=== PATIENT | female | born 1935 | race Caucasian/White ===

== ENCOUNTER 2022-11-10 16:40 | Inpatient (IN) | payer MEDICARE ==
[~2022-11-10] VITALS: Ht 157.5 cm; Wt 63.5 kg
[2022-11-10 17:12] LABS: HEMATOCRIT 40.7 % (31.2-41.9); MEAN CORPUSCULAR HEMOGLOBIN 28.8 uug (24.7-32.8); MEAN CORPUSCULAR VOLUME 87.7 fL (75.5-95.3); PLATELET COUNT (AUTO) 238 K/uL (179-408)
[2022-11-10] MEDS ORDERED: ADALAT (17:24)
[2022-11-10] MEDS ORDERED: BACTRIM (17:24)
[2022-11-10] MEDS ORDERED: FURO20TA90 (17:24)
[2022-11-10] MEDS ORDERED: ELIQUIS (17:24)
[2022-11-10] MEDS ORDERED: GABAPENTIN (17:24)
[2022-11-10] MEDS ORDERED: LISINOPRIL (17:24)
[2022-11-10 17:29] LABS: BILIRUBIN,TOTAL 0.5 mg/dL (0.2-1.0); CREATININE 0.7 mg/dL (0.6-1.3); MAGNESIUM 1.7 mg/dL (1.8-2.4); PHOSPHOROUS 2.9 mg/dL (2.5-4.9); POTASSIUM 3.8 mmol/L (3.5-5.1); TOTAL PROTEIN, SERUM 6.8 g/dL (6.4-8.2)
[2022-11-10 17:47] LABS: *BILIRUBIN,URIN NEGATIVE (NEGATIVE); *BLOOD, URINE NEGATIVE (NEGATIVE); *CLARITY,URINE CLEAR (CLEAR); *COLOR,URINE YELLOW (YELLOW); *KETONES,URINE NEGATIVE (NEGATIVE); *UROBILINOGEN,URINE 0.2 E.U./dl (NORMAL); LEUKOCYTE ESTERASE ,URINE NEGATIVE (NEGATIVE); NITRITE, URINE NEGATIVE (NEGATIVE); PH,URINE 5.5 (5.0-8.0); UGLUCOSE NEGATIVE (NEGATIVE)
--- NOTE | 2022-11-10 19:10 | NUR ---
Recieved report from Destiny WYNN
[2022-11-10] MEDS ORDERED: METRONIDAZOLE 500 MG/NS 100 ML PIGGYBACK IV ONE (19:30)
[2022-11-10] MEDS ORDERED: CEFTRIAXONE 1 G in IV DEXTROSE 5% 50 ML IV ONE (19:30)
[2022-11-10] MEDS ORDERED: CEFTRIAXONE /D5W 50ML IVPB **ER PYXIS IV ONE (19:30)
[2022-11-10] MEDS ORDERED: METRONIDAZOLE 500 MG/NS 100ML 100 ML IV ONE (19:30)
--- NOTE | 2022-11-10 22:00 | NUR ---
Called [facility] for panel call, Florin Dickerson carton liner.
--- NOTE | 2022-11-10 23:42 | NUR ---
Called third floor and gave report to Manuel WYNN.
[2022-11-10] MEDS ORDERED: MAGNESIUM OXIDE 400 MG TABLET PO ONE (23:45)
--- NOTE | 2022-11-10 23:55 | NUR ---
Transferred patient upstairs to third floor via gurney with belongings.
[2022-11-11] MEDS ORDERED: REMEDY ESSENTIAL ZINC PASTE 113 GM TP PRN
[2022-11-11] MEDS ORDERED: ONDANSETRON 4 MG/2 ML VIAL IV PRN
[2022-11-11] MEDS ORDERED: ACETAMINOPHEN 325 MG TABLET PO PRN
[2022-11-11] MEDS ORDERED: MORPHINE SULFATE 2 MG/1 ML DISP.SYRIN IV PRN
--- NOTE | 2022-11-11 | NUR ---
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 Patient stated she has multiple falls and she always land on her right knee. Patient complain of left shoulder/arm pain and right flank pain. orient to her room, cont to monitor.
[2022-11-11 00:39] VITALS: BP 163/76; TEMP 97.3; O2SAT 93
[2022-11-11] MEDS ORDERED: METRONIDAZOLE 250 MG TABLET ONE ×2 (00:59)
[2022-11-11] MEDS: METRONIDAZOLE 250 MG TABLET PO SCH ×4 (01:09→18:36)
[2022-11-11 04:00] VITALS: BP 140/64; TEMP 97.5; O2SAT 96
--- NOTE | 2022-11-11 05:20 | NUR ---
Patient awake no complain of pain on flank area, but pain on left shoulder, offer pain meds but she refused, rendered good preston care, cont on abx with no adverse reaction. cont t monitor.
[2022-11-11] MEDS: PANTOPRAZOLE SODIUM 40 MG TABLET.DR PO SCH (06:16)
[2022-11-11 07:11] LABS: HEMATOCRIT 38.6 % (31.2-41.9); MEAN CORPUSCULAR HEMOGLOBIN 29.2 uug (24.7-32.8); MEAN CORPUSCULAR VOLUME 86.7 fL (75.5-95.3); PLATELET COUNT (AUTO) 212 K/uL (179-408)
[2022-11-11 07:36] LABS: CARBON DIOXIDE 26 mmol/L (21-32); CHLORIDE 104 mmol/L (98-107); CHOLESTEROL 133 mg/dL (<200); CREATININE 0.7 mg/dL (0.6-1.3); HDL CHOLESTEROL 58 mg/dL (40-60); MAGNESIUM 1.7 mg/dL (1.8-2.4); PHOSPHOROUS 2.9 mg/dL (2.5-4.9); POTASSIUM 3.6 mmol/L (3.5-5.1); TRIGLYCERIDES 41 MG/DL (30-150); UREA NITROGEN, BLOOD 11 mg/dL (7-18)
[2022-11-11 07:58] LABS: THYROID STIMULATING HORMONE 1.196 mIU/mL (0.358-3.740)
[2022-11-11] MEDS ORDERED: MAGNESIUM OXIDE 400 MG TABLET PO ONE (10:00)
[2022-11-11] MEDS: FUROSEMIDE 20 MG TABLET PO SCH (10:47)
[2022-11-11] MEDS: APIXABAN 2.5 MG TABLET PO SCH ×2 (10:49→20:27)
[2022-11-11] MEDS: GABAPENTIN 100 MG CAPSULE PO SCH ×3 (10:49→18:36)
[2022-11-11] MEDS: LISINOPRIL 5 MG TABLET PO SCH (10:51)
[2022-11-11 11:27] VITALS: BP 169/72; TEMP 97.7; O2SAT 96
[2022-11-11] MEDS ORDERED: FERR-56 PO (12:41)
[2022-11-11] MEDS ORDERED: GABA-532 PO (12:41)
[2022-11-11] MEDS ORDERED: FURO-152 PO (12:41)
[2022-11-11] MEDS ORDERED: APIX5TAB PO (12:41)
[2022-11-11] MEDS ORDERED: LISI20TA30 PO (12:44)
[2022-11-11] MEDS ORDERED: CHOL100062 PO (12:50)
[2022-11-11] MEDS ORDERED: OLOP5DRO15 OP (12:50)
[2022-11-11] MEDS ORDERED: FLUT16SP16 BNOSTRILS (12:50)
[2022-11-11] MEDS ORDERED: NIFE60TA73 PO (12:50)
[2022-11-11] MEDS ORDERED: IBUP-1953 PO (12:50)
[2022-11-11] MEDS ORDERED: MAGN400T26 PO (12:51)
[2022-11-11] MEDS ORDERED: CEFTRIAXONE 1 G in IV DEXTROSE 5% 50 ML IV SCH (15:15)
[2022-11-11 16:36] VITALS: BP 118/67; TEMP 97.7; O2SAT 95
[2022-11-11] MEDS: MAGNESIUM OXIDE 400 MG TABLET PO SCH (18:35)
[2022-11-11] MEDS: OLOPATADINE 0.1% OPHT DROP 5 ML BOTTLE EACHEYE SCH (18:35)
[2022-11-11] MEDS: CEFTRIAXONE 1 G in IV DEXTROSE 5% 50 ML IV SCH (20:22)
[2022-11-11] MEDS: METRONIDAZOLE 500 MG/NS 100ML 500 MG in PREMIXED 1 EACH IV SCH (21:10)
--- NOTE | 2022-11-12 00:12 | NUR ---
Flagyl 250 mg po not given, Flagyl 500 mg IVPB given @2200
--- NOTE | 2022-11-12 04:11 | NUR ---
AAOx4 Admitted for abdominal pain. All needs attended. VSS. Kept comfortable. On IV ABT given as scheduled. No acute distress noted.Will monitor patient.Fall precautions maintained. Incontinent of bowel and bladder. No BM noted this shift.
[2022-11-12] MEDS: METRONIDAZOLE 500 MG/NS 100ML 500 MG in PREMIXED 1 EACH IV SCH (05:11)
[2022-11-12] MEDS: METRONIDAZOLE 250 MG TABLET PO SCH ×5 (05:16→23:12)
[2022-11-12] MEDS: PANTOPRAZOLE SODIUM 40 MG TABLET.DR PO SCH (06:09)
[2022-11-12 07:00] LABS: HEMATOCRIT 39.3 % (31.2-41.9); MEAN CORPUSCULAR HEMOGLOBIN 29.5 uug (24.7-32.8); PLATELET COUNT (AUTO) 209 K/uL (179-408)
[2022-11-12 07:19] LABS: CARBON DIOXIDE 27 mmol/L (21-32); CHLORIDE 104 mmol/L (98-107); CREATININE 0.8 mg/dL (0.6-1.3); POTASSIUM 3.6 mmol/L (3.5-5.1); UREA NITROGEN, BLOOD 12 mg/dL (7-18)
[2022-11-12] MEDS ORDERED: IBUPROFEN 400 MG TABLET PO PRN (08:30)
[2022-11-12] MEDS: OLOPATADINE 0.1% OPHT DROP 5 ML BOTTLE EACHEYE SCH ×2 (09:33→17:51)
[2022-11-12] MEDS: FLUTICASONE PROP NASAL SPRAY 16 GM BOTTLE NS SCH (09:34)
[2022-11-12] MEDS: DOCUSATE SODIUM 100 MG/10 ML LIQUID UDC PO SCH (09:34)
[2022-11-12] MEDS: FERROUS SULFATE 325 MG TABEC PO SCH (09:34)
[2022-11-12] MEDS: GABAPENTIN 100 MG CAPSULE PO SCH ×2 (09:34→09:35)
[2022-11-12] MEDS: CHOLECALCIFEROL 1,000 UNIT TABLET PO SCH (09:35)
[2022-11-12] MEDS: MAGNESIUM OXIDE 400 MG TABLET PO SCH ×2 (09:35→17:51)
[2022-11-12] MEDS: FUROSEMIDE 20 MG TABLET PO SCH (09:36)
[2022-11-12] MEDS: NIFEdipine XL 60 MG TABSR PO SCH (09:43)
[2022-11-12] MEDS: APIXABAN 2.5 MG TABLET PO SCH ×2 (09:43→21:16)
[2022-11-12] MEDS: LISINOPRIL 20 MG TABLET PO SCH (09:44)
[2022-11-12] MEDS: LISINOPRIL 5 MG TABLET PO SCH (09:44)
--- NOTE | 2022-11-12 10:00 | NUR ---
Duplicate 100mg PO order for Gabapentin: Asked pt how many Gabapentin pills she takes in the morning and she said "Just one". Called pharmacy and they will call doctor to verify. Holding second Gabapentin until further orders.
[2022-11-12 11:45] VITALS: BP 166/84; TEMP 98.8; O2SAT 97
[2022-11-12 15:45] VITALS: BP 129/57; TEMP 98; O2SAT 96
[2022-11-12 20:00] VITALS: BP 145/75; TEMP 98.2; O2SAT 94
[2022-11-12] MEDS: CEFTRIAXONE 1 G in IV DEXTROSE 5% 50 ML IV SCH (20:39)
[2022-11-13 04:00] VITALS: BP 140/71; TEMP 97.6; O2SAT 94
[2022-11-13] MEDS: METRONIDAZOLE 250 MG TABLET PO SCH ×4 (05:58→23:52)
[2022-11-13] MEDS: PANTOPRAZOLE SODIUM 40 MG TABLET.DR PO SCH (06:00)
[2022-11-13 06:26] LABS: HEMATOCRIT 40.3 % (31.2-41.9); MEAN CORPUSCULAR HEMOGLOBIN 29.2 uug (24.7-32.8); MEAN CORPUSCULAR VOLUME 87.2 fL (75.5-95.3); PLATELET COUNT (AUTO) 241 K/uL (179-408)
[2022-11-13 06:47] LABS: CARBON DIOXIDE 26 mmol/L (21-32); CHLORIDE 103 mmol/L (98-107); CREATININE 0.7 mg/dL (0.6-1.3); MAGNESIUM 1.9 mg/dL (1.8-2.4); PHOSPHOROUS 2.9 mg/dL (2.5-4.9); POTASSIUM 3.6 mmol/L (3.5-5.1); UREA NITROGEN, BLOOD 15 mg/dL (7-18)
--- NOTE | 2022-11-13 06:52 | NUR ---
PATIENT AWAKE IN BED. SLEPT AT INTERVALS THROUGHOUT THE NIGHT. VSS. ALL NEEDS ATTENDED. WILL CONTINUE TO MONITOR AND ASSESS.
--- NOTE | 2022-11-13 07:04 | NUR ---
PATIENTS IV NOTED TO RIGHT FA, INFILTRATED. REMOVED. WILL ENDORSE. Addendum: 11/13/22 at 0706 by TOBI MERCEDES LVN PATIENT REQUESTING FOR REINSERTION LATER, NO IVS DUE. GROVE WORKER NOTIFIED.
[2022-11-13] MEDS: DOCUSATE SODIUM 100 MG/10 ML LIQUID UDC PO SCH ×2 (08:58→09:00)
[2022-11-13] MEDS: FLUTICASONE PROP NASAL SPRAY 16 GM BOTTLE NS SCH (08:59)
[2022-11-13] MEDS: CHOLECALCIFEROL 1,000 UNIT TABLET PO SCH (08:59)
[2022-11-13] MEDS: LISINOPRIL 5 MG TABLET PO SCH (08:59)
[2022-11-13] MEDS: GABAPENTIN 100 MG CAPSULE PO SCH (09:00)
[2022-11-13] MEDS: APIXABAN 2.5 MG TABLET PO SCH ×2 (09:00→22:15)
[2022-11-13] MEDS: LISINOPRIL 20 MG TABLET PO SCH (09:00)
[2022-11-13] MEDS: FUROSEMIDE 20 MG TABLET PO SCH (09:01)
[2022-11-13] MEDS: MAGNESIUM OXIDE 400 MG TABLET PO SCH ×2 (09:01→18:00)
[2022-11-13] MEDS: NIFEdipine XL 60 MG TABSR PO SCH (09:01)
[2022-11-13] MEDS: FERROUS SULFATE 325 MG TABEC PO SCH (09:01)
[2022-11-13] MEDS: OLOPATADINE 0.1% OPHT DROP 5 ML BOTTLE EACHEYE SCH ×2 (09:01→18:00)
[2022-11-13 10:56] VITALS: BP 155/74; TEMP 97.8; O2SAT 95
[2022-11-13] MEDS ORDERED: SORBITOL 70% SOLUTION 30 ML UDC PO ONE (14:30)
[2022-11-13] MEDS ORDERED: LACTULOSE 20 G/30 ML LIQUID UDC PO ONE (14:30)
[2022-11-13 16:12] VITALS: BP 107/67; TEMP 97.6; O2SAT 94
--- NOTE | 2022-11-13 18:29 | NUR ---
Patient awake and alert, very pleasant. She denies pain. No BM yet. Saline lock reinserted. No other complains at this time.
[2022-11-13 20:00] VITALS: BP 138/82; TEMP 98.9; O2SAT 95
[2022-11-13] MEDS: CEFTRIAXONE 1 G in IV DEXTROSE 5% 50 ML IV SCH (22:14)
--- NOTE | 2022-11-14 00:59 | NUR ---
PT C/O HEADACHE GIVEN MOTRIN 400 MG ORDERED F PT GIVEN MEDICATION ORDERED NO ADVERSE REACTION NOTED. CALL LIGHT WITHIN REACH,NO S/S OF DISTRESS, NEEDS ATTENDED TO. WILL CONTINUE TO MONITOR FOR SAFETY.
[2022-11-14] MEDS: PANTOPRAZOLE SODIUM 40 MG TABLET.DR PO SCH (06:15)
[2022-11-14] MEDS: METRONIDAZOLE 250 MG TABLET PO SCH ×2 (06:15→12:22)
[2022-11-14 06:17] VITALS: BP 120/68; TEMP 98.2; O2SAT 99
--- NOTE | 2022-11-14 06:49 | NUR ---
PT SLEPT DURING NIGHT NO S/S OF DISTRESS FALLS AND SAFETY PRECAUTION MAINTAINED. WILL ENDORSE TO AM NURSE.
--- NOTE | 2022-11-14 07:45 | NUR ---
Patient received to care, awake, calm, reports some nausea and pain, but says it improved. No other distress, side rails are up, pt is able to state her needs.
[2022-11-14] MEDS: FERROUS SULFATE 325 MG TABEC PO SCH (09:37)
[2022-11-14] MEDS: GABAPENTIN 100 MG CAPSULE PO SCH (09:37)
[2022-11-14] MEDS: CHOLECALCIFEROL 1,000 UNIT TABLET PO SCH (09:37)
[2022-11-14] MEDS: DOCUSATE SODIUM 100 MG/10 ML LIQUID UDC PO SCH (09:38)
[2022-11-14] MEDS: APIXABAN 2.5 MG TABLET PO SCH (09:42)
[2022-11-14] MEDS: MAGNESIUM OXIDE 400 MG TABLET PO SCH (09:49)
[2022-11-14] MEDS: OLOPATADINE 0.1% OPHT DROP 5 ML BOTTLE EACHEYE SCH (09:49)
[2022-11-14] MEDS: FLUTICASONE PROP NASAL SPRAY 16 GM BOTTLE NS SCH (09:49)
[2022-11-14] MEDS: FUROSEMIDE 20 MG TABLET PO SCH (09:49)
[2022-11-14] MEDS: LISINOPRIL 5 MG TABLET PO SCH (10:02)
[2022-11-14] MEDS: LISINOPRIL 20 MG TABLET PO SCH (10:03)
[2022-11-14] MEDS: NIFEdipine XL 60 MG TABSR PO SCH (10:03)
[2022-11-14] MEDS ORDERED: CIPR500T5 PO (10:47)
[2022-11-14] MEDS ORDERED: METR500T PO (10:47)
[2022-11-14 11:00] VITALS: BP 158/78; TEMP 97.5; O2SAT 96
--- NOTE | 2022-11-14 15:25 | NUR ---
Pt is being discharged to ARU. Pt is aware and willing. Report given to ARU nurse.
== END 2022-11-14 15:32 | DRG 392 ==
LOC: ER 16:40 → MEDSURG3 23:39
PROVIDERS: ADMIT Nurse Practitioner Acute Care; ATTEND Nurse Practitioner Acute Care
DX: A09 Infectious gastroenteritis and colitis, unspecified (principal); E87.1 Hypo-osmolality and hyponatremia; K50.90 Crohn's disease, unspecified, without complications; M48.54XA Collapsed vertebra, not elsewhere classified, thoracic region, initial encounter for fracture; E83.42 Hypomagnesemia; I25.10 Atherosclerotic heart disease of native coronary artery without angina pectoris; I48.91 Unspecified atrial fibrillation; I10 Essential (primary) hypertension
CPT/HCPCS: 36415; 83605; 83735; 84100; 84443; 84484; 85025; 93005; A4663; G0378; J0696; J3490; J3535

== ENCOUNTER 2022-11-14 15:55 | Inpatient (IN) | payer MEDICARE ==
[~2022-11-14] VITALS: Ht 157.5 cm; Wt 63.5 kg
[~2022-11-14 15:55] MED LIST: APIX5TAB PO; CHOL100062 PO; CIPR500T5 PO; FERR-56 PO; FLUT16SP16 BNOSTRILS; FURO-152 PO; GABA-532 PO; IBUP-1953 PO; LISI20TA30 PO; MAGN400T26 PO; METR500T PO; NIFE60TA73 PO; OLOP5DRO15 OP
[2022-11-14 16:47] VITALS: BP 128/66; TEMP 97.7; O2SAT 94
[2022-11-14 20:00] VITALS: BP 119/71; TEMP 98.1; O2SAT 95
[2022-11-14] MEDS: REMEDY ESSENTIAL ZINC PASTE 113 GM TOP SCH (20:17)
[2022-11-14] MEDS: TRAMADOL HCL 50 MG TABLET PO PRN (23:08)
[2022-11-15 05:03] VITALS: BP 138/83; TEMP 97.6; O2SAT 95
[2022-11-15 07:51] VITALS: BP 150/77; TEMP 98.4; O2SAT 95
[2022-11-15] MEDS: REMEDY ESSENTIAL ZINC PASTE 113 GM TOP SCH ×2 (09:15→20:21)
[2022-11-15] MEDS ORDERED: CIPROFLOXACIN HCL PO SCH (10:30)
[2022-11-15] MEDS ORDERED: ONDANSETRON HCL 4 MG TABLET PO PRN (10:45)
[2022-11-15] MEDS: NIFEdipine XL 60 MG TABSR PO SCH (11:56)
[2022-11-15] MEDS: GABAPENTIN 100 MG CAPSULE PO SCH (11:56)
[2022-11-15] MEDS: METRONIDAZOLE 500 MG TABLET PO SCH ×2 (11:57→17:25)
[2022-11-15] MEDS: LISINOPRIL 20 MG TABLET PO SCH (11:57)
[2022-11-15] MEDS: CIPROFLOXACIN HCL 250 MG TABLET PO SCH ×2 (12:02→20:21)
[2022-11-15 15:17] VITALS: BP 123/72; TEMP 98.6; O2SAT 95
[2022-11-15] MEDS: APIXABAN 5 MG TABLET PO SCH (17:24)
[2022-11-15] MEDS: OLOPATADINE 0.1% OPHT DROP 5 ML BOTTLE OP SCH (17:25)
[2022-11-15] MEDS: MAGNESIUM OXIDE 400 MG TABLET PO SCH (17:25)
[2022-11-15] MEDS: FUROSEMIDE 20 MG TABLET PO SCH (17:25)
[2022-11-15 21:22] VITALS: BP 131/73; TEMP 98.4; O2SAT 95
[2022-11-16 04:15] VITALS: BP 117/57; TEMP 98; O2SAT 98
[2022-11-16 07:44] VITALS: BP 119/80; TEMP 98.2; O2SAT 94
[2022-11-16] MEDS: CHOLECALCIFEROL 1,000 UNIT TABLET PO SCH (08:21)
[2022-11-16] MEDS: OLOPATADINE 0.1% OPHT DROP 5 ML BOTTLE OP SCH ×2 (08:22→16:16)
[2022-11-16] MEDS: FUROSEMIDE 20 MG TABLET PO SCH ×2 (08:22→16:16)
[2022-11-16] MEDS: LISINOPRIL 20 MG TABLET PO SCH (08:22)
[2022-11-16] MEDS: APIXABAN 5 MG TABLET PO SCH ×2 (08:22→16:17)
[2022-11-16] MEDS: MAGNESIUM OXIDE 400 MG TABLET PO SCH ×2 (08:22→16:16)
[2022-11-16] MEDS: METRONIDAZOLE 500 MG TABLET PO SCH ×2 (08:22→16:16)
[2022-11-16] MEDS: GABAPENTIN 100 MG CAPSULE PO SCH (08:22)
[2022-11-16] MEDS: NIFEdipine XL 60 MG TABSR PO SCH (08:27)
[2022-11-16] MEDS: CIPROFLOXACIN HCL 250 MG TABLET PO SCH ×2 (08:36→20:22)
[2022-11-16] MEDS: REMEDY ESSENTIAL ZINC PASTE 113 GM TOP SCH ×2 (08:54→20:22)
[2022-11-16] MEDS ORDERED: METHYL SALICYLATE/MENTHOL CREAM 28 GM TUBE TOP PRN (13:00)
[2022-11-16 15:05] VITALS: BP 108/59; TEMP 98.6; O2SAT 95
[2022-11-16] MEDS: GLUCERNA SHAKE 237 ML CAN PO SCH (16:17)
[2022-11-16 20:00] VITALS: BP 109/65; TEMP 98.7; O2SAT 94
[2022-11-16] MEDS: TRAMADOL HCL 50 MG TABLET PO PRN (23:16)
[2022-11-17 04:00] VITALS: BP 111/61; TEMP 97.8; O2SAT 95
[2022-11-17 08:34] VITALS: BP 115/74; TEMP 98.2; O2SAT 96
[2022-11-17] MEDS: APIXABAN 5 MG TABLET PO SCH ×2 (08:35→17:00)
[2022-11-17] MEDS: METRONIDAZOLE 500 MG TABLET PO SCH ×2 (08:36→16:55)
[2022-11-17] MEDS: MAGNESIUM OXIDE 400 MG TABLET PO SCH ×2 (08:36→16:55)
[2022-11-17] MEDS: NIFEdipine XL 60 MG TABSR PO SCH (08:37)
[2022-11-17] MEDS: LISINOPRIL 20 MG TABLET PO SCH (08:37)
[2022-11-17] MEDS: CHOLECALCIFEROL 1,000 UNIT TABLET PO SCH (08:37)
[2022-11-17] MEDS: FUROSEMIDE 20 MG TABLET PO SCH ×2 (08:37→17:01)
[2022-11-17] MEDS: GABAPENTIN 100 MG CAPSULE PO SCH (08:37)
[2022-11-17] MEDS: GLUCERNA SHAKE 237 ML CAN PO SCH ×2 (08:38→16:56)
[2022-11-17] MEDS: OLOPATADINE 0.1% OPHT DROP 5 ML BOTTLE OP SCH ×2 (08:38→16:56)
[2022-11-17] MEDS: REMEDY ESSENTIAL ZINC PASTE 113 GM TOP SCH ×2 (08:39→20:39)
[2022-11-17] MEDS: TRAMADOL HCL 50 MG TABLET PO PRN ×2 (08:57→23:25)
[2022-11-17] MEDS: CIPROFLOXACIN HCL 250 MG TABLET PO SCH ×2 (10:41→20:36)
[2022-11-17 16:21] VITALS: BP 120/78; TEMP 98.5; O2SAT 94
[2022-11-17] MEDS ORDERED: ONDANSETRON ODT 4 MG TAB.RAPDIS SL ONE (19:15)
[2022-11-17] MEDS ORDERED: ONDANSETRON ODT 4 MG TAB.RAPDIS SL PRN (20:30)
[2022-11-17 20:44] VITALS: BP 128/85; TEMP 98.3; O2SAT 94
[2022-11-18 04:03] VITALS: BP 124/67; TEMP 98.2; O2SAT 93
[2022-11-18 07:33] VITALS: BP 132/76; TEMP 98; O2SAT 94
[2022-11-18] MEDS: TRAMADOL HCL 50 MG TABLET PO PRN (07:54)
[2022-11-18] MEDS: CIPROFLOXACIN HCL 250 MG TABLET PO SCH (08:29)
[2022-11-18] MEDS: APIXABAN 5 MG TABLET PO SCH ×2 (08:30→16:03)
[2022-11-18] MEDS: GABAPENTIN 100 MG CAPSULE PO SCH (08:31)
[2022-11-18] MEDS: CHOLECALCIFEROL 1,000 UNIT TABLET PO SCH (08:31)
[2022-11-18] MEDS: FUROSEMIDE 20 MG TABLET PO SCH ×2 (08:31→16:04)
[2022-11-18] MEDS: LISINOPRIL 20 MG TABLET PO SCH (08:31)
[2022-11-18] MEDS: METRONIDAZOLE 500 MG TABLET PO SCH (08:31)
[2022-11-18] MEDS: MAGNESIUM OXIDE 400 MG TABLET PO SCH ×2 (08:31→16:03)
[2022-11-18] MEDS: NIFEdipine XL 60 MG TABSR PO SCH (08:32)
[2022-11-18] MEDS: OLOPATADINE 0.1% OPHT DROP 5 ML BOTTLE OP SCH ×2 (08:32→16:04)
[2022-11-18] MEDS: GLUCERNA SHAKE 237 ML CAN PO SCH ×2 (08:32→16:04)
[2022-11-18] MEDS: REMEDY ESSENTIAL ZINC PASTE 113 GM TOP SCH ×2 (08:33→21:15)
[2022-11-18] MEDS: ACIDOPHILUS/BULGARICUS CHEW TAB PO SCH ×2 (11:39→21:14)
[2022-11-18] MEDS: ONDANSETRON ODT 4 MG TAB.RAPDIS SL PRN (11:39)
[2022-11-18 16:01] VITALS: BP 98/49; TEMP 98.3; O2SAT 96
[2022-11-18 20:05] VITALS: BP 106/54; TEMP 98.3; O2SAT 94
[2022-11-19 04:51] VITALS: BP 126/67; TEMP 97.6; O2SAT 95
[2022-11-19 07:19] LABS: BASOPHILS # (AUTO) 0.1 K/UL (0.0-0.2); EOSINOPHILS # (AUTO) 0.1 K/uL (0.0-0.7); EOSINOPHILS % (AUTO) 2.5 % (0.0-7.0); HEMATOCRIT 38.4 % (31.2-41.9); LYMPHOCYTES # (AUTO) 1.9 K/uL (0.8-4.8); LYMPHOCYTES % (AUTO) 33.4 % (20.5-51.5); MEAN CORPUSCULAR HEMOGLOBIN 29.6 uug (24.7-32.8); MEAN CORPUSCULAR HGB CONC 34 g/dL (32.3-35.6); MEAN CORPUSCULAR VOLUME 87.9 fL (75.5-95.3); MONOCYTES # (AUTO) 0.7 K/uL (0.1-1.30); MONOCYTES % (AUTO) 11.7 % (0.0-11.0); NEUTROPHILS % (AUTO) 51.4 % (38.5-71.5); PLATELET COUNT (AUTO) 251 K/uL (179-408); RED BLOOD CELL COUNT(AUTO) 4.37 MIL/uL (3.63-4.92); RED CELL DISTRIBUTION WIDTH 14.6 % (12.3-17.7); WHITE BLOOD COUNT (AUTO) 5.8 K/uL (3.8-11.8)
[2022-11-19 07:28] LABS: ALANINE AMINOTRANSFERASE 45 U/L (14-59); ALKALINE PHOSPHATASE 44 U/L (50-136); ASPARTATE AMINOTRANSFERASE 36 U/L (15-37); BILIRUBIN,TOTAL 0.5 mg/dL (0.2-1.0); CALCIUM 9.6 mg/dL (8.5-10.1); CARBON DIOXIDE 31 mmol/L (21-32); CHLORIDE 100 mmol/L (98-107); CREATININE 0.9 mg/dL (0.6-1.3); DIFFERENTIAL COMMENT 1; GLUCOSE 102 mg/dL (74-106); MAGNESIUM 1.8 mg/dL (1.8-2.4); PHOSPHOROUS 3.4 mg/dL (2.5-4.9); POTASSIUM 3.9 mmol/L (3.5-5.1); SODIUM SERUM 139 mmol/L (136-145); TOTAL PROTEIN, SERUM 6.2 g/dL (6.4-8.2); UREA NITROGEN, BLOOD 17 mg/dL (7-18)
[2022-11-19] MEDS: GLUCERNA SHAKE 237 ML CAN PO SCH ×2 (08:00→17:26)
[2022-11-19 08:38] VITALS: BP 119/71; TEMP 98; O2SAT 96
[2022-11-19] MEDS: REMEDY ESSENTIAL ZINC PASTE 113 GM TOP SCH ×2 (09:53→21:09)
[2022-11-19] MEDS: CHOLECALCIFEROL 1,000 UNIT TABLET PO SCH (09:53)
[2022-11-19] MEDS: GABAPENTIN 100 MG CAPSULE PO SCH (09:53)
[2022-11-19] MEDS: FUROSEMIDE 20 MG TABLET PO SCH ×2 (09:53→17:25)
[2022-11-19] MEDS: LISINOPRIL 20 MG TABLET PO SCH (09:54)
[2022-11-19] MEDS: ACIDOPHILUS/BULGARICUS CHEW TAB PO SCH ×2 (09:56→21:09)
[2022-11-19] MEDS: APIXABAN 5 MG TABLET PO SCH ×2 (09:56→17:25)
[2022-11-19] MEDS: MAGNESIUM OXIDE 400 MG TABLET PO SCH ×2 (09:56→17:25)
[2022-11-19] MEDS: NIFEdipine XL 60 MG TABSR PO SCH (09:57)
[2022-11-19] MEDS: TRAMADOL HCL 50 MG TABLET PO PRN (10:12)
[2022-11-19] MEDS: OLOPATADINE 0.1% OPHT DROP 5 ML BOTTLE OP SCH ×2 (13:13→17:24)
[2022-11-19 16:11] VITALS: BP 100/57; TEMP 98.3; O2SAT 96
[2022-11-19 20:46] VITALS: BP 116/64; TEMP 98.2; O2SAT 94
[2022-11-19] MEDS: ACETAMINOPHEN ES 500 MG TABLET PO PRN (20:51)
[2022-11-19] MEDS: LACTULOSE 20 G/30 ML LIQUID UDC PO PRN (20:51)
[2022-11-20 04:30] VITALS: BP 131/60; TEMP 97.7; O2SAT 94
[2022-11-20 08:23] VITALS: BP 134/74; TEMP 97.8; O2SAT 99
[2022-11-20] MEDS: ACIDOPHILUS/BULGARICUS CHEW TAB PO SCH ×2 (09:42→20:17)
[2022-11-20] MEDS: MAGNESIUM OXIDE 400 MG TABLET PO SCH ×2 (09:42→17:54)
[2022-11-20] MEDS: FUROSEMIDE 20 MG TABLET PO SCH ×2 (09:42→18:05)
[2022-11-20] MEDS: CHOLECALCIFEROL 1,000 UNIT TABLET PO SCH (09:42)
[2022-11-20] MEDS: LISINOPRIL 20 MG TABLET PO SCH (09:43)
[2022-11-20] MEDS: GABAPENTIN 100 MG CAPSULE PO SCH (09:43)
[2022-11-20] MEDS: OLOPATADINE 0.1% OPHT DROP 5 ML BOTTLE OP SCH ×2 (09:43→17:55)
[2022-11-20] MEDS: APIXABAN 5 MG TABLET PO SCH ×2 (09:45→17:56)
[2022-11-20] MEDS: GLUCERNA SHAKE 237 ML CAN PO SCH ×2 (09:45→18:07)
[2022-11-20] MEDS: LACTULOSE 20 G/30 ML LIQUID UDC PO PRN ×2 (09:49→20:17)
[2022-11-20] MEDS: NIFEdipine XL 60 MG TABSR PO SCH (10:51)
[2022-11-20] MEDS: REMEDY ESSENTIAL ZINC PASTE 113 GM TOP SCH ×2 (13:55→20:17)
[2022-11-20 16:20] VITALS: BP 99/55; TEMP 98; O2SAT 94
[2022-11-20] MEDS: ONDANSETRON ODT 4 MG TAB.RAPDIS SL PRN (20:17)
[2022-11-20] MEDS: TRAMADOL HCL 50 MG TABLET PO PRN (20:17)
[2022-11-20] MEDS ORDERED: BISACODYL 10 MG SUPP.RECT RC PRN (21:30)
[2022-11-20] MEDS ORDERED: BISACODYL 10 MG SUPP.RECT RC ONE (21:30)
[2022-11-21] MEDS: TRAMADOL HCL 50 MG TABLET PO PRN (02:18)
[2022-11-21 04:00] VITALS: BP 158/84; TEMP 98; O2SAT 93
[2022-11-21] MEDS: ACETAMINOPHEN ES 500 MG TABLET PO PRN (05:32)
[2022-11-21] MEDS ORDERED: MAGNESIUM HYDROXIDE 30 ML LIQUID UDC PO ONE (06:00)
[2022-11-21 07:57] VITALS: BP 158/87; TEMP 98.5; O2SAT 95
[2022-11-21] MEDS: GLUCERNA SHAKE 237 ML CAN PO SCH ×2 (08:21→17:35)
[2022-11-21] MEDS: GABAPENTIN 100 MG CAPSULE PO SCH (08:53)
[2022-11-21] MEDS: LISINOPRIL 20 MG TABLET PO SCH (08:54)
[2022-11-21] MEDS: ACIDOPHILUS/BULGARICUS CHEW TAB PO SCH ×2 (08:54→20:42)
[2022-11-21] MEDS: MAGNESIUM OXIDE 400 MG TABLET PO SCH ×2 (08:54→17:34)
[2022-11-21] MEDS: FUROSEMIDE 20 MG TABLET PO SCH ×2 (08:54→17:34)
[2022-11-21] MEDS: NIFEdipine XL 60 MG TABSR PO SCH (08:54)
[2022-11-21] MEDS: CHOLECALCIFEROL 1,000 UNIT TABLET PO SCH (08:54)
[2022-11-21] MEDS: APIXABAN 5 MG TABLET PO SCH ×2 (08:55→17:34)
[2022-11-21] MEDS: OLOPATADINE 0.1% OPHT DROP 5 ML BOTTLE OP SCH ×2 (08:55→17:34)
[2022-11-21] MEDS: REMEDY ESSENTIAL ZINC PASTE 113 GM TOP SCH ×2 (08:56→20:42)
[2022-11-21] MEDS: LACTULOSE 20 G/30 ML LIQUID UDC PO PRN (13:11)
[2022-11-21] MEDS: ONDANSETRON ODT 4 MG TAB.RAPDIS SL PRN (14:31)
[2022-11-21 16:35] VITALS: BP 108/67; TEMP 98.6; O2SAT 96
[2022-11-21 19:55] VITALS: BP 103/62; TEMP 98.8; O2SAT 95
[2022-11-22 04:00] VITALS: BP 137/80; TEMP 98.4; O2SAT 95
[2022-11-22 07:56] VITALS: BP 147/90; TEMP 98.4; O2SAT 93
[2022-11-22] MEDS: GLUCERNA SHAKE 237 ML CAN PO SCH ×2 (08:44→17:16)
[2022-11-22] MEDS: CHOLECALCIFEROL 1,000 UNIT TABLET PO SCH (08:45)
[2022-11-22] MEDS: LISINOPRIL 20 MG TABLET PO SCH (08:45)
[2022-11-22] MEDS: ACIDOPHILUS/BULGARICUS CHEW TAB PO SCH ×2 (08:45→20:43)
[2022-11-22] MEDS: GABAPENTIN 100 MG CAPSULE PO SCH (08:46)
[2022-11-22] MEDS: MAGNESIUM OXIDE 400 MG TABLET PO SCH ×2 (08:46→17:15)
[2022-11-22] MEDS: REMEDY ESSENTIAL ZINC PASTE 113 GM TOP SCH ×2 (08:46→20:44)
[2022-11-22] MEDS: OLOPATADINE 0.1% OPHT DROP 5 ML BOTTLE OP SCH ×2 (08:53→17:15)
[2022-11-22] MEDS: NIFEdipine XL 60 MG TABSR PO SCH (08:53)
[2022-11-22] MEDS: FUROSEMIDE 20 MG TABLET PO SCH ×2 (08:53→17:16)
[2022-11-22] MEDS: APIXABAN 5 MG TABLET PO SCH ×2 (08:54→17:16)
[2022-11-22 15:57] VITALS: BP 109/67; TEMP 98.3; O2SAT 97
[2022-11-22 20:17] VITALS: BP 107/65; TEMP 98.5; O2SAT 97
[2022-11-23 04:08] VITALS: BP 121/65; TEMP 98.3; O2SAT 97
[2022-11-23 07:44] VITALS: BP 135/70; TEMP 98.7; O2SAT 96
[2022-11-23] MEDS: GLUCERNA SHAKE 237 ML CAN PO SCH ×2 (08:45→17:16)
[2022-11-23] MEDS: CHOLECALCIFEROL 1,000 UNIT TABLET PO SCH (08:45)
[2022-11-23] MEDS: ACIDOPHILUS/BULGARICUS CHEW TAB PO SCH ×2 (08:45→21:33)
[2022-11-23] MEDS: OLOPATADINE 0.1% OPHT DROP 5 ML BOTTLE OP SCH ×2 (08:45→17:14)
[2022-11-23] MEDS: MAGNESIUM OXIDE 400 MG TABLET PO SCH ×2 (08:45→17:15)
[2022-11-23] MEDS: LISINOPRIL 20 MG TABLET PO SCH (08:46)
[2022-11-23] MEDS: NIFEdipine XL 60 MG TABSR PO SCH (08:46)
[2022-11-23] MEDS: GABAPENTIN 100 MG CAPSULE PO SCH (08:46)
[2022-11-23] MEDS: APIXABAN 5 MG TABLET PO SCH ×2 (08:47→17:15)
[2022-11-23] MEDS: FUROSEMIDE 20 MG TABLET PO SCH ×2 (08:50→17:15)
[2022-11-23] MEDS: REMEDY ESSENTIAL ZINC PASTE 113 GM TOP SCH ×2 (09:05→21:34)
[2022-11-23 15:01] VITALS: BP 105/45; TEMP 98.2; O2SAT 96
[2022-11-23 20:00] VITALS: BP 115/70; TEMP 97.9; O2SAT 97
[2022-11-24 06:03] VITALS: BP 139/79; TEMP 97.2; O2SAT 96
[2022-11-24 08:02] VITALS: BP 113/53; TEMP 98.1; O2SAT 97
[2022-11-24] MEDS: GLUCERNA SHAKE 237 ML CAN PO SCH ×3 (08:47→21:01)
[2022-11-24] MEDS: OLOPATADINE 0.1% OPHT DROP 5 ML BOTTLE OP SCH ×3 (08:47→21:02)
[2022-11-24] MEDS: CHOLECALCIFEROL 1,000 UNIT TABLET PO SCH (08:48)
[2022-11-24] MEDS: ACIDOPHILUS/BULGARICUS CHEW TAB PO SCH ×2 (08:48→21:00)
[2022-11-24] MEDS: MAGNESIUM OXIDE 400 MG TABLET PO SCH ×2 (08:48→17:19)
[2022-11-24] MEDS: FUROSEMIDE 20 MG TABLET PO SCH ×2 (08:49→17:19)
[2022-11-24] MEDS: GABAPENTIN 100 MG CAPSULE PO SCH (08:49)
[2022-11-24] MEDS: APIXABAN 5 MG TABLET PO SCH ×2 (08:49→17:22)
[2022-11-24] MEDS: REMEDY ESSENTIAL ZINC PASTE 113 GM TOP SCH ×2 (08:55→21:01)
[2022-11-24] MEDS: LISINOPRIL 20 MG TABLET PO SCH (09:41)
[2022-11-24] MEDS: NIFEdipine XL 60 MG TABSR PO SCH (09:41)
[2022-11-24 15:46] VITALS: BP 105/60; TEMP 98.3; O2SAT 96
[2022-11-24 20:00] VITALS: BP 112/73; TEMP 98.7; O2SAT 95
[2022-11-25 04:00] VITALS: BP 109/68; TEMP 98.6; O2SAT 96
[2022-11-25] MEDS: TRAMADOL HCL 50 MG TABLET PO PRN (06:11)
[2022-11-25 07:47] VITALS: BP 148/78; TEMP 97.6; O2SAT 96
[2022-11-25] MEDS: GABAPENTIN 100 MG CAPSULE PO SCH (08:26)
[2022-11-25] MEDS: MAGNESIUM OXIDE 400 MG TABLET PO SCH ×2 (08:26→17:17)
[2022-11-25] MEDS: ACIDOPHILUS/BULGARICUS CHEW TAB PO SCH ×2 (08:26→20:26)
[2022-11-25] MEDS: LISINOPRIL 20 MG TABLET PO SCH (08:26)
[2022-11-25] MEDS: FUROSEMIDE 20 MG TABLET PO SCH ×2 (08:26→17:17)
[2022-11-25] MEDS: CHOLECALCIFEROL 1,000 UNIT TABLET PO SCH (08:26)
[2022-11-25] MEDS: NIFEdipine XL 60 MG TABSR PO SCH (08:26)
[2022-11-25] MEDS: REMEDY ESSENTIAL ZINC PASTE 113 GM TOP SCH ×2 (08:27→20:27)
[2022-11-25] MEDS: APIXABAN 5 MG TABLET PO SCH ×2 (08:27→17:19)
[2022-11-25] MEDS: LACTULOSE 20 G/30 ML LIQUID UDC PO PRN (11:07)
[2022-11-25] MEDS: ACETAMINOPHEN ES 500 MG TABLET PO PRN (11:07)
[2022-11-25] MEDS: ONDANSETRON ODT 4 MG TAB.RAPDIS SL PRN (13:15)
[2022-11-25 13:34] VITALS: BP 115/64; TEMP 97.8; O2SAT 98
[2022-11-25 16:00] VITALS: BP 103/59; TEMP 97.8; O2SAT 98
[2022-11-25] MEDS: GLUCERNA SHAKE 237 ML CAN PO SCH (17:20)
[2022-11-25] MEDS: OLOPATADINE 0.1% OPHT DROP 5 ML BOTTLE OP SCH (17:20)
[2022-11-25 20:00] VITALS: BP 109/68; TEMP 98.1; O2SAT 97
[2022-11-26 04:37] VITALS: BP 126/63; TEMP 96.5; O2SAT 95
[2022-11-26] MEDS: GLUCERNA SHAKE 237 ML CAN PO SCH ×2 (08:24→17:06)
[2022-11-26 08:39] VITALS: BP 139/63; TEMP 98; O2SAT 98
[2022-11-26] MEDS: REMEDY ESSENTIAL ZINC PASTE 113 GM TOP SCH ×2 (08:44→20:44)
[2022-11-26] MEDS: ACIDOPHILUS/BULGARICUS CHEW TAB PO SCH ×2 (08:44→20:44)
[2022-11-26] MEDS: NIFEdipine XL 60 MG TABSR PO SCH (08:45)
[2022-11-26] MEDS: GABAPENTIN 100 MG CAPSULE PO SCH (08:45)
[2022-11-26] MEDS: LISINOPRIL 20 MG TABLET PO SCH (08:45)
[2022-11-26] MEDS: MAGNESIUM OXIDE 400 MG TABLET PO SCH ×2 (08:45→16:33)
[2022-11-26] MEDS: FUROSEMIDE 20 MG TABLET PO SCH ×2 (08:45→16:34)
[2022-11-26] MEDS: OLOPATADINE 0.1% OPHT DROP 5 ML BOTTLE OP SCH ×2 (08:46→16:32)
[2022-11-26] MEDS: APIXABAN 5 MG TABLET PO SCH ×2 (08:49→16:33)
[2022-11-26] MEDS: CHOLECALCIFEROL 1,000 UNIT TABLET PO SCH (08:50)
[2022-11-26 16:01] VITALS: BP 117/70; TEMP 98.1; O2SAT 96
[2022-11-26] MEDS: LACTULOSE 20 G/30 ML LIQUID UDC PO PRN ×2 (16:40→21:14)
[2022-11-26 20:00] VITALS: BP 122/72; TEMP 97.7; O2SAT 96
[2022-11-27 08:00] VITALS: BP 140/87; TEMP 98.1; O2SAT 97
[2022-11-27] MEDS: ACIDOPHILUS/BULGARICUS CHEW TAB PO SCH ×2 (08:59→20:18)
[2022-11-27] MEDS: GABAPENTIN 100 MG CAPSULE PO SCH (08:59)
[2022-11-27] MEDS: FUROSEMIDE 20 MG TABLET PO SCH ×2 (08:59→16:40)
[2022-11-27] MEDS: CHOLECALCIFEROL 1,000 UNIT TABLET PO SCH (09:00)
[2022-11-27] MEDS: OLOPATADINE 0.1% OPHT DROP 5 ML BOTTLE OP SCH ×2 (09:00→16:41)
[2022-11-27] MEDS: MAGNESIUM OXIDE 400 MG TABLET PO SCH ×2 (09:00→16:40)
[2022-11-27] MEDS: APIXABAN 5 MG TABLET PO SCH ×2 (09:01→16:41)
[2022-11-27] MEDS: LISINOPRIL 20 MG TABLET PO SCH (09:02)
[2022-11-27] MEDS: NIFEdipine XL 60 MG TABSR PO SCH (09:02)
[2022-11-27] MEDS: GLUCERNA SHAKE 237 ML CAN PO SCH ×2 (09:25→16:41)
[2022-11-27] MEDS: REMEDY ESSENTIAL ZINC PASTE 113 GM TOP SCH ×2 (09:25→20:17)
[2022-11-27 16:00] VITALS: BP 137/66; TEMP 98.3; O2SAT 96
[2022-11-27 20:34] VITALS: BP 141/77; TEMP 97.6; O2SAT 96
[2022-11-27] MEDS: TRAMADOL HCL 50 MG TABLET PO PRN (22:39)
[2022-11-28 04:00] VITALS: BP 137/67; TEMP 97.8; O2SAT 97
[2022-11-28 07:43] VITALS: BP 146/78; TEMP 97.9; O2SAT 97
[2022-11-28] MEDS: GLUCERNA SHAKE 237 ML CAN PO SCH ×2 (08:31→17:39)
[2022-11-28] MEDS: ACIDOPHILUS/BULGARICUS CHEW TAB PO SCH ×2 (08:55→20:16)
[2022-11-28] MEDS: GABAPENTIN 100 MG CAPSULE PO SCH (08:55)
[2022-11-28] MEDS: REMEDY ESSENTIAL ZINC PASTE 113 GM TOP SCH ×2 (08:55→20:16)
[2022-11-28] MEDS: CHOLECALCIFEROL 1,000 UNIT TABLET PO SCH (08:56)
[2022-11-28] MEDS: FUROSEMIDE 20 MG TABLET PO SCH ×2 (08:56→17:37)
[2022-11-28] MEDS: MAGNESIUM OXIDE 400 MG TABLET PO SCH ×2 (08:56→17:37)
[2022-11-28] MEDS: NIFEdipine XL 60 MG TABSR PO SCH (08:56)
[2022-11-28] MEDS: LISINOPRIL 20 MG TABLET PO SCH (08:56)
[2022-11-28] MEDS: APIXABAN 5 MG TABLET PO SCH ×2 (08:58→17:38)
[2022-11-28] MEDS: OLOPATADINE 0.1% OPHT DROP 5 ML BOTTLE OP SCH ×2 (09:21→17:37)
[2022-11-28 10:22] LABS: *BILIRUBIN,URIN NEGATIVE (NEGATIVE); *BLOOD, URINE NEGATIVE (NEGATIVE); *CLARITY,URINE CLEAR (CLEAR); *KETONES,URINE NEGATIVE (NEGATIVE); *PROTEIN,URINE NEGATIVE (NEGATIVE); *UROBILINOGEN,URINE 0.2 E.U./dl (NORMAL); LEUKOCYTE ESTERASE ,URINE NEGATIVE (NEGATIVE); NITRITE, URINE NEGATIVE (NEGATIVE); PH,URINE 7.5 (5.0-8.0); UGLUCOSE NEGATIVE (NEGATIVE)
[2022-11-28 10:23] LABS: *COLOR,URINE LIGHT YELLOW (YELLOW)
[2022-11-28] MEDS: ACETAMINOPHEN ES 500 MG TABLET PO PRN (14:36)
[2022-11-28 16:12] VITALS: BP 100/51; TEMP 97.9; O2SAT 98
[2022-11-28 20:00] VITALS: BP 135/74; TEMP 97.5; O2SAT 97
[2022-11-29 04:00] VITALS: BP 125/72; TEMP 97.7; O2SAT 98
[2022-11-29 07:55] VITALS: BP 137/70; TEMP 98.4; O2SAT 98
[2022-11-29] MEDS: ACIDOPHILUS/BULGARICUS CHEW TAB PO SCH (10:02)
[2022-11-29] MEDS: CHOLECALCIFEROL 1,000 UNIT TABLET PO SCH (10:02)
[2022-11-29] MEDS: GLUCERNA SHAKE 237 ML CAN PO SCH (10:02)
[2022-11-29] MEDS: MAGNESIUM OXIDE 400 MG TABLET PO SCH (10:02)
[2022-11-29] MEDS: LISINOPRIL 20 MG TABLET PO SCH (10:02)
[2022-11-29] MEDS: GABAPENTIN 100 MG CAPSULE PO SCH (10:02)
[2022-11-29] MEDS: NIFEdipine XL 60 MG TABSR PO SCH (10:02)
[2022-11-29] MEDS: OLOPATADINE 0.1% OPHT DROP 5 ML BOTTLE OP SCH (10:03)
[2022-11-29] MEDS: APIXABAN 5 MG TABLET PO SCH (10:03)
[2022-11-29] MEDS: REMEDY ESSENTIAL ZINC PASTE 113 GM TOP SCH (10:04)
[2022-11-29] MEDS: FUROSEMIDE 20 MG TABLET PO SCH (10:13)
[2022-11-29] MEDS: TRAMADOL HCL 50 MG TABLET PO PRN (14:13)
[2022-11-29 16:00] VITALS: BP 108/62; TEMP 97.9; O2SAT 96
== END 2022-11-29 16:25 | DRG 372 ==
PROVIDERS: ADMIT Physical Medicine & Rehabilitation Pain Medicine; ATTEND Physical Medicine & Rehabilitation Pain Medicine
DX: A04.9 Bacterial intestinal infection, unspecified (principal); I48.20 Chronic atrial fibrillation, unspecified; I48.91 Unspecified atrial fibrillation; M48.54XD Collapsed vertebra, not elsewhere classified, thoracic region, subsequent encounter for fracture with routine healing; I11.0 Hypertensive heart disease with heart failure; I50.9 Heart failure, unspecified; F32.A Depression, unspecified; I25.10 Atherosclerotic heart disease of native coronary artery without angina pectoris; K56.41 Fecal impaction; M81.0 Age-related osteoporosis without current pathological fracture; N28.89 Other specified disorders of kidney and ureter; M79.89 Other specified soft tissue disorders; R53.1 Weakness; Z79.01 Long term (current) use of anticoagulants; M19.09 Primary osteoarthritis, other specified site
CPT/HCPCS: 36415; 71045; 73130; 74018; 83735; 84100; 85025; 97535-GO-CO; A4663; A9150; Q0162